=== PATIENT | female | born 1960 | race Caucasian/White ===

== ENCOUNTER 2021-03-13 08:05 | Day surgery (SDC) | payer BC ==
[2021-03-06 14:05] VITALS: BMI 29.0
[2021-03-13] MEDS: TROPICAMIDE 1% OPHTH SOLN 15 ML BOTTLE ONE ×3 (08:25→08:35)
[2021-03-13] MEDS: CIPROFLOXACIN 0.3% EYE DROPS 5 ML BOTTLE ONE ×3 (08:25→08:35)
[2021-03-13] MEDS: CYCLOPENTOLATE 2% OPHTH SOLN 2 ML BOTTLE ONE ×3 (08:25→08:35)
[2021-03-13] MEDS: PHENYLEPHRINE 2.5% OPHTH SOLN 15 ML BOTTLE ONE ×3 (08:25→08:35)
[2021-03-13 08:28] VITALS: TEMP 97.8
[2021-03-13] MEDS ORDERED: MIDAZOLAM HCL 2 MG/2 ML SINGLE DOSE VIAL ONE (09:45)
[2021-03-13 10:35] VITALS: BP 144/64; PULSE 66
== END 2021-03-13 10:44 | disposition home or self-care (01) ==
LOC: FASU 08:05
PROVIDERS: ATTEND Ophthalmology
PROC: 08RK3JZ Replacement of Left Lens with Synthetic Substitute, Percutaneous Approach (ICD-10-PCS; principal; 2021-03-13 09:50)
DX: H26.8 Other specified cataract (principal)